=== PATIENT | male | born 1950 | race African-American/Black ===

== ENCOUNTER 2023-08-08 05:05 | Day surgery (SDC) | payer OTHER ==
[2023-08-07 14:39] VITALS: BMI 30.3
[2023-08-08] MEDS ORDERED: PROPOFOL 20 ML ONE ×2 (12:38→13:31)
[2023-08-08] MEDS ORDERED: MIDAZOLAM HCL 2 MG/2 ML SINGLE DOSE VIAL ONE (12:38)
[2023-08-08] MEDS ORDERED: FENTANYL CITRATE/PF 50 MCG/ML VIAL ONE ×4 (13:05→14:52)
[2023-08-08] MEDS ORDERED: ceFAZolin SODIUM 1 GM VIAL IVPB ONE (13:20)
[2023-08-08] MEDS ORDERED: BACITRACIN ZINC 15 GM TUBE TOPICAL OINTMENT TP ONE (13:59)
[2023-08-08] MEDS ORDERED: LACTATED RINGERS SOLUTION 1,000 ML IV SCH (14:30)
[2023-08-08 16:11] VITALS: RESP 18
[2023-08-08 16:49] VITALS: BP 131/89; PULSE 64; TEMP 97.1
== END 2023-08-08 17:00 | disposition home or self-care (01) ==
LOC: EDBD → JASU-SURG 05:05
PROVIDERS: ATTEND Urology
PROC: 0V503ZZ Destruction of Prostate, Percutaneous Approach (ICD-10-PCS; principal; 2023-08-08 13:00)
DX: C61 Malignant neoplasm of prostate (principal)
CPT/HCPCS: 55873; C2618; 94760